=== PATIENT | male | born 1970 | race Caucasian/White ===

== ENCOUNTER 2018-08-08 17:59 | Emergency (ER) | payer OTHER ==
[~2018-08-08] VITALS: Ht 180.3 cm; Wt 93.0 kg
[~2018-08-08 17:59] MED LIST: IBUPROFEN 800800 MG PO; MOTION RELIEF25 MG PO; NORCO 5-325 TA1 EACH PO
[2018-08-08] MEDS ORDERED: [UNRECOGNIZED DRUG - REMARK] (18:07)
[2018-08-08] MEDS ORDERED: NORCO 5-325 TA1 EACH PO (18:51)
[2018-08-08] MEDS ORDERED: IBUPROFEN 600600 M1 PO (18:52)
[2018-08-08 19:03] VITALS: BP 139/70
== END 2018-08-08 19:03 | disposition home or self-care (01) ==
LOC: M.ERS 17:59
DX: M25.521 Pain in right elbow (principal); M54.9 Dorsalgia, unspecified; G89.29 Other chronic pain

== ENCOUNTER 2018-10-10 18:30 | Emergency (ER) | payer OTHER ==
[~2018-10-10] VITALS: Ht 180.3 cm; Wt 90.7 kg
[~2018-10-10 18:30] MED LIST changes: +IBUPROFEN 600600 M1 PO; +[UNRECOGNIZED DRUG - REMARK]
[2018-10-10 19:03] LABS: ABSOLUTE BASOPHILS 0.1 thou/uL (0.0-0.2); ABSOLUTE EOSINOPHILS 0.2 thou/uL (0.0-0.7); ABSOLUTE LYMPHOCYTES 2.2 thou/uL (0.8-5.3); ABSOLUTE MONOCYTES 0.7 thou/uL (0.0-1.2); ABSOLUTE NEUTROPHILS 5.3 thou/uL (1.6-8.1); BASOPHILS 1.1 %; EOSINOPHILS 2.3 %; HEMATOCRIT 45.2 % (42.0-52.0); HEMOGLOBIN 15.3 gm/dL (14.0-18.0); LYMPHOCYTES 26.3 %; MCH 29.9 pg (26.0-34.0); MCV 87.9 fL (80.0-100.0); MONOCYTES 7.7 %; MPV 8.3 fl. (7.2-11.1); NUCLEATED RBCS 0 /100WBC; PLATELET COUNT* 239 thou/uL (150-400); POLYS 62.6 %; RBC 5.14 mil/uL (4.50-6.00); RDW-CV 14.2 % (10.5-14.5); WBC 8.5 thou/uL (4.0-11.0)
[2018-10-10 19:12] LABS: APTT 27.8 Seconds (25.0-31.3); PROTIME 9.9 Seconds (9.20-11.50)
[2018-10-10 19:13] LABS: CALCIUM 8.9 mg/dL (8.5-10.1); CREATININE 1.2 mg/dL (0.6-1.3); POTASSIUM 3.9 mmol/L (3.5-5.1)
[2018-10-10 19:18] LABS: TOTAL BILIRUBIN 0.4 mg/dL (<0.1-1.0); TOTAL PROTEIN 7.7 g/dL (6.4-8.2)
[2018-10-10 22:10] VITALS: BP 118/77
--- NOTE | 2018-10-12 14:26 | EKG ---
[place] [address] ELECTROCARDIOGRAM REPORT Name: JUAN ZAZUETA Room: 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
== END 2018-10-10 20:55 | disposition home or self-care (01) ==
LOC: M.ERS 18:30
PROVIDERS: Nurse Practitioner Family
DX: K22.8 Other specified diseases of esophagus (principal); R11.2 Nausea with vomiting, unspecified; M54.9 Dorsalgia, unspecified; G89.29 Other chronic pain; Z87.19 Personal history of other diseases of the digestive system

== ENCOUNTER 2020-05-03 16:19 | Emergency (ER) | payer OTHER ==
[~2020-05-03] VITALS: Ht 177.8 cm; Wt 95.3 kg
[2020-05-03] MEDS ORDERED: PROTONIX 20 MG20 M1 PO (16:41)
[2020-05-03] MEDS ORDERED: CYCLOBENZAPRINE5 MG PO (18:02)
[2020-05-03] MEDS ORDERED: PREDNISONE 10 M10 MG PO (18:02)
[2020-05-03 18:19] VITALS: BP 135/80
== END 2020-05-03 18:21 | disposition home or self-care (01) ==
LOC: M.ERS 16:19
DX: M54.32 Sciatica, left side (principal); G62.9 Polyneuropathy, unspecified; G89.29 Other chronic pain

== ENCOUNTER 2021-03-29 18:17 | Observation (INO) | payer OTHER ==
[~2021-03-29] VITALS: Ht 180.3 cm; Wt 91.6 kg
--- NOTE | ~2021-03-29 | PROC ---
[address] [address] PROCEDURE REPORT Name: JUAN ZAZUETA Room: [address] Margret Cantor#: [id number] Admission: 03/29/21 Attend Phys: Thania Goff MD Discharge: 03/30/21 Date of : [birth year] Report #: [id number] THIS REPORT FOR: cc: Fernando Alejandro Vincent R. DO [facility],Medical Records Staff ~ For GI report, please see the Provation report in Perceptive 7 content. By: 0700Medical Records Staff MARTHA /SUDEEP
[~2021-03-29 18:17] MED LIST changes: +CYCLOBENZAPRINE5 MG PO; +PREDNISONE 10 M10 MG PO; +PROTONIX 20 MG20 M1 PO
[2021-03-29 18:31] VITALS: BP 137/97
[2021-03-29] MEDS ORDERED: OMEPRAZOLE10 MG PO (18:35)
[2021-03-29 19:05] LABS: CALCIUM 8.4 mg/dL (8.5-10.1); CREATININE 1.1 mg/dL (0.6-1.3)
[2021-03-29 19:10] LABS: ABSOLUTE BASOPHILS 0.1 thou/uL (0.0-0.2); ABSOLUTE EOSINOPHILS 0.2 thou/uL (0.0-0.7); ABSOLUTE LYMPHOCYTES 1.8 thou/uL (0.8-5.3); ABSOLUTE MONOCYTES 0.7 thou/uL (0.0-1.2); ABSOLUTE NEUTROPHILS 4.8 thou/uL (1.6-8.1); BASOPHILS 0.7 %; EOSINOPHILS 2.7 %; HEMATOCRIT 43.3 % (42.0-52.0); HEMOGLOBIN 14.8 gm/dL (14.0-18.0); LYMPHOCYTES 23.5 %; MCH 30.5 pg (26.0-34.0); MCHC 34.1 g/dL (28.0-37.0); MCV 89.2 fL (80.0-100.0); MONOCYTES 9.7 %; MPV 8.4 fl. (7.2-11.1); NUCLEATED RBCS 0 /100WBC; PLATELET COUNT* 214 thou/uL (150-400); POLYS 63.4 %; RBC 4.85 mil/uL (4.50-6.00); WBC 7.5 thou/uL (4.0-11.0)
[2021-03-29 19:15] LABS: ALBUMIN 3.5 g/dL (3.4-5.0); MAGNESIUM 2.1 mg/dL (1.8-2.4); TOTAL BILIRUBIN 0.3 mg/dL (<0.1-1.0)
[2021-03-30] VITALS (7 sets, daily range): BP systolic 116–146; BP diastolic 72–86
--- NOTE | 2021-03-30 05:43 | NUR ---
PT TO FLOOR FROM ED APPROX 0445. PT CAME IN DUE TO CHEST PAIN BUT WITH ASSESSMENT IT WAS DISCOVERED HE HAD SOME BLACK STOOLS EARLIER IN THE WEEK. PT AO X4 UP AD SLIME TO TOILET. LUNGS CTA WITH NO COUGH. ABD SOFT NONTENDER AND HYPERACTIVE BOWEL SOUNDS. VSS, PT NPO FOR SCOPE PER GI. CALL LIGHT IN REACH FOR PT SAFETY
[2021-03-30 07:24] LABS: ABSOLUTE EOSINOPHILS 0.2 thou/uL (0.0-0.7); ABSOLUTE LYMPHOCYTES 1.3 thou/uL (0.8-5.3); ABSOLUTE MONOCYTES 0.7 thou/uL (0.0-1.2); ABSOLUTE NEUTROPHILS 4.7 thou/uL (1.6-8.1); BASOPHILS 0.7 %; HEMATOCRIT 42.1 % (42.0-52.0); HEMOGLOBIN 14.4 gm/dL (14.0-18.0); LYMPHOCYTES 18.9 %; MCH 30.6 pg (26.0-34.0); MCHC 34.2 g/dL (28.0-37.0); MCV 89.5 fL (80.0-100.0); MONOCYTES 9.6 %; MPV 8.1 fl. (7.2-11.1); NUCLEATED RBCS 0 /100WBC; PLATELET COUNT* 204 thou/uL (150-400); POLYS 67.8 %
[2021-03-30 08:04] LABS: ALBUMIN 3.4 g/dL (3.4-5.0); CALCIUM 8.6 mg/dL (8.5-10.1); CREATININE 1.1 mg/dL (0.6-1.3); POTASSIUM 4.6 mmol/L (3.5-5.1); TOTAL BILIRUBIN 0.3 mg/dL (<0.1-1.0)
[2021-03-30] MEDS ORDERED: PROTONIX40 M2 PO (13:02)
--- NOTE | 2021-03-30 14:35 | EKG ---
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1970 Requested By: Akash Ceron Order Number: [id number] MD: Enrique Dunbar Measurements Intervals [place] Rate: 79 P: 30 KS: 126 QRS: -59 QRSD: 97 T: 55 QT: 350 QTc: 402 Interpretive Statements Sinus rhythm Premature atrial contractions left anterior fascicular block Abnormal R-wave progression, late transition Borderline T abnormalities, anterior leads Compared to ECG 10/10/2018 19:02:50 Atrial premature complex(es) now present Left anterior fascicular block now present T-wave abnormality now present Electronically Signed On 03-30-2021 14:34:49 MINING TEACHER by Enrique Dunbar [email or web address] <ELECTRONICALLY SIGNED> By: Enrique Dunbar MD, [facility] 03/30/21 1434 21 21 Enrique Dunbar MD, FAC /EPI
--- NOTE | 2021-04-01 09:49 | CON ---
[address] [address] CONSULTATION Name: JUAN ZAZUETA Room: [address] Margret Cantor#: [id number] Admission: 03/29/21 Attend Phys: Thania Goff MD Discharge: 03/30/21 Date of : 66 Report #: [id number] THIS REPORT FOR: cc: Fernando Alejandro,Franklin Coreas DO ~ cc: THANIA GOFF MD, FERNANDO ALEJANDRO DO DATE OF CONSULTATION: 03/30/2021 REFERRING PHYSICIAN: Thania Goff MD REASON FOR CONSULTATION: Possible GI bleed. ASSESSMENT AND PLAN: 1. Atypical chest pain and chest discomfort with abnormal CT angiogram suggesting possible bleeding within the stomach. 2. Chronic acid reflux with intermittent dysphagia with history of esophageal dilations in the past. 3. Age over 50 with need for a screening colonoscopy. RECOMMENDATIONS: Since the patient has had some issues with chest discomfort, chest pain as well as possibly some dark stools earlier this week and abnormal CAT scan that suggests there may be some active bleeding within the upper GI tract, I recommend the patient be admitted to the hospital for urgent endoscopy. We will proceed with upper endoscopy today and make further recommendations thereafter. I have discussed plans with the patient and he is agreeable to same. HISTORY OF PRESENT ILLNESS: The patient is a 50-year-old white male who came to the hospital the night before admission with complaints of atypical chest discomfort, chest pain, which was fleeting in nature. He has had problem with chronic acid reflux and has undergone endoscopic evaluations by myself and by my partner, Dr. Smallwood, with previous dilations in the past. His last exam was done within the last couple of years. He has been trying to get work into our office for the last year and a half or so, but because of insurance issues and other problems, he has not been able to be scheduled. He states his reflux symptoms are fairly well controlled with his current dosing of omeprazole once daily. He is adapted to chewing his food very thoroughly and has not had any further major issues with dysphagia. He denies any complaints of any worsening dysphagia or odynophagia. He has had no nausea or vomiting. He has had some mild nondescript abdominal pain with no issues with his bowels or bowel frequency. His states that he goes to the bathroom on a regular basis. He did have some darker stools earlier this week, which were suggestive of melena, but on questioning the patient, he had also taken some Pepto-[place], [place] [address] CONSULTATION Name: ZAZUETAJUAN Room: [address] Margret Cantor#: [id number] Admission: 03/29/21 Attend Phys: Thania Goff MD Discharge: 03/30/21 Date of : 66 Report #: [id number] to why he probably had the darker stools. He was seen through the Emergency Room and underwent CT angiogram, which suggests there may be some active bleeding going on within the body of the stomach and for this reason, it was recommended that he be admitted to the hospital for further evaluation and treatment. He is now here for the same. ALLERGIES: IBUPROFEN. MEDICATIONS AT HOME: Include pantoprazole 20 mg once daily. PAST MEDICAL HISTORY: Remarkable for chronic acid reflux with history of esophageal strictures most likely Schatzki's rings in the past. He has had previous history of hyperlipidemia. He has had problem with chronic low back pain as well, for which he takes some Flexeril. SOCIAL HISTORY: The patient does not smoke. Drinks occasionally. FAMILY HISTORY: Negative. PHYSICAL EXAMINATION: GENERAL: Pleasant 50-year-old gentleman who is awake and alert. CARDIOPULMONARY: Revealed regular rate and rhythm. His lungs were clear. ABDOMEN: Soft and not tender. No rebound or guarding noted. LABORATORY DATA: From admission revealed a white count of 7.5, hemoglobin 14.8, platelet count 214,000, MCV is 89.2 and RDW is 14.0. Overnight, his hemoglobin has remained stable at 14.4. His sodium 140, potassium 4.0, chloride 105, bicarbonate 28, his BUN 16, creatinine 1.14, GFR of at least 70. Total bilirubin 0.3, alkaline phosphatase 68, AST 16, ALT 30. His albumin is normal at 3.5. Lipase is normal. CT angiogram of the chest, abdomen and pelvis revealed a fatty liver. There is some amorphous density along the inferior aspect of the stomach measuring 16 x 8, which may represent a small blush of hemorrhage related to small GI bleed. No gastric wall thickening or discrete mass was noted. The remainder of the CT scan were all unremarkable. DISCUSSION: At the present time, the patient has had some dark stools, has an abnormal CAT scan and has had some abnormal chest discomfort, chest pain. We will proceed with upper endoscopy today and make further recommendations [address] [address] CONSULTATION Name: JUAN ZAZUETA Room: [address] Margret Cantor#: [id number] Admission: 03/29/21 Attend Phys: Thania Goff MD Discharge: 03/30/21 Date of : [birth year] Report #: [id number] thereafter. I have discussed plans with the patient and he is agreeable to same. <ELECTRONICALLY SIGNED> By: Franklin Ruiz DO 04/01/21 0949 0701 [id number] Ruiz DO /nt
== END 2021-03-30 13:45 | disposition home or self-care (01) ==
LOC: M.ERS 18:17 → M.TBA-ER 23:22 → M.ORTHSURG 03-30 04:24
PROVIDERS: Emergency Medicine Emergency Medical Services; Internal Medicine Gastroenterology; ADMIT Internal Medicine; ATTEND Internal Medicine
DX: K22.2 Esophageal obstruction (principal); K44.9 Diaphragmatic hernia without obstruction or gangrene; K92.2 Gastrointestinal hemorrhage, unspecified; R07.89 Other chest pain; Z20.822 Contact with and (suspected) exposure to COVID-19; M54.9 Dorsalgia, unspecified; G89.29 Other chronic pain; K21.9 Gastro-esophageal reflux disease without esophagitis; K43.9 Ventral hernia without obstruction or gangrene; E78.5 Hyperlipidemia, unspecified; F41.9 Anxiety disorder, unspecified; Z79.899 Other long term (current) drug therapy